=== PATIENT | female | born 1955 | race Caucasian/White ===

== ENCOUNTER 2025-02-07 21:23 | Observation (INO) | payer OTHER ==
--- NOTE | 2025-02-07 22:23 | RAD REPORT ---
EXAMINATION: ONE VIEW CHEST XR CLINICAL INDICATION: CHEST PAIN TECHNIQUE: Frontal chest projection is submitted. Examination is limited by patient positioning and t echnique. COMPARISON: 08/29/2024 FINDINGS: The lungs are mildly emphysematous but clear. The heart is upper limit of normal in size. No displace d fractures identified. Mild levoscoliosis upper thoracic spine. IMPRESSION: No acute intrathoracic abnormalities.
[2025-02-07 23:11] LABS: Absolute Basophils 0.1 K/uL (0-0.5); Absolute Eosinophils 0.3 K/uL (0-0.5); Absolute Lymphocytes (CBC) 2.2 K/uL (0.7-4.9); Absolute Neutrophil 3.5 K/uL (1.8-8.0); Basophils % 1.5 % (0-1.3); Eosinophils % 4.9 % (0-4.4); Hematocrit 35.3 % (36.0-45.0); Hemoglobin 12.3 g/dL (12.0-15.0); MCH 31.5 pg (27.0-35.0); MCHC 34.7 g/dL (32.0-36.0); MCV 90.6 fL (80-100); MPV 8.9 fL (7.6-11.3); Monocytes % 13.6 % (3.3-12.3); Platelets 250 thou/uL (152-406); Red Cell Distribution Width 14.2 % (12.1-15.2)
[2025-02-07 23:13] LABS: PT Prothrombin Time 11.6 SECONDS (10-13.0); Protime INR 1.02
[2025-02-07 23:25] LABS: ALT/SGPT 29 U/L (13-56); AST/SGOT 26 U/L (15-37); Albumin 3.3 g/dL (3.4-5.0); Albumin/Globulin Ratio 0.9 (1.1-1.8); Alkaline Phosphatase 63 U/L (45-117); Anion Gap 7.9 mEq/L (5.0-15.0); BUN Blood Urea Nitrogen 25 mg/dL (7-18); Bicarbonate 27 mEq/L (21-32); Bilirubin Direct < 0.2 mg/dL (0-0.2); Bilirubin Indirect, Calculated 0.1 mg/dL (0.2-0.8); Bilirubin Total 0.3 mg/dL (0.2-1.0); Globulin 3.5 g/dL (2.3-3.5); Glomerular Filtration Rate 46 ml/min (=/>90); Glucose Level 87 mg/dL (74-106); Magnesium 2.3 mg/dL (1.6-2.4); NT PRO-BNP 217 pg/mL (<125); Potassium 3.9 mEq/L (3.5-5.1); Protein, Total 6.8 g/dL (6.4-8.2); Sodium Level 141 mEq/L (136-145); Troponin High Sensitivity 4.9 pg/mL (<58.9)
[2025-02-07] MEDS ORDERED: MAGNESIUM SULFATE 1 gm IVPB 1 GM/100 ML BAG IV ONE (23:34)
[2025-02-07] MEDS ORDERED: NA CHLORIDE 0.9% 1,000 ML ONE (23:34)
--- NOTE | 2025-02-08 01:45 | ER ---
Nurse's Notes [facility] Name: Gwen Wen Age: 69 yrs Sex: Female : 1955 Arrival Date: 02/07/2025 Time: 21:23 Bed 6 Private MD: Diagnosis: Paroxysmal atrial fibrillation Presentation: 02/07 21:50 Chief complaint: Patient states: at 2030 i began to feel like my heart was fluttering. lg3 i have a history of a fib and i think its back. denies pain/SOB. Coronavirus screen: Client denies travel out of the [place] in the last 14 days. At this time, the client does not indicate any symptoms associated with coronavirus-19. Ebola Screen: No symptoms or risks identified at this time. Initial Sepsis Screen: Does the patient meet any 2 criteria? No. Patient's initial sepsis screen is negative. Does the patient have a suspected source of infection? No. Patient's initial sepsis screen is negative. Risk Assessment: Do you want to hurt yourself or someone else? Patient reports no desire to harm self or others. Onset of symptoms was February 07, 2025. 21:50 Method Of Arrival: Ambulatory lg3 21:50 Acuity: CAT 3 lg3 Triage Assessment: 21:50 General: Appears in no apparent distress. comfortable, Behavior is calm, cooperative. lg3 Pain: Denies pain. EENT: No deficits noted. No signs and/or symptoms were reported regarding the EENT system. Neuro: No deficits noted. [place] Agitation-Sedation Scale (RASS): 0 - Alert and Calm Level of Consciousness is awake, alert, Oriented to person, place, time, situation. Cardiovascular: Reports palpitations, Denies chest pain, shortness of breath, Heart tones S1 S2 present Capillary refill < 3 seconds Clubbing of nail beds is absent JVD is absent Patient's skin is warm and dry. Rhythm is atrial fibrillation with rapid ventricular response Chest pain is denied. Respiratory: No deficits noted. Airway is patent Respiratory effort is even, unlabored, Respiratory pattern is regular, symmetrical, Breath sounds are clear bilaterally. GI: No deficits noted. No signs and/or symptoms were reported involving the gastrointestinal system. : No signs and/or symptoms were reported regarding the genitourinary system. Derm: No deficits noted. No signs and/or symptoms reported regarding the dermatologic system. Skin is intact, is healthy with good turgor, Skin is dry, Skin is normal, Skin temperature is warm. Musculoskeletal: No deficits noted. No signs and/or symptoms reported regarding the musculoskeletal system. Circulation, motion, and sensation intact. Range of motion: intact in all extremities. Historical: - Allergies: 21:50 Bactrim; lg3 21:50 NITROFURAN DERIVATIVES; lg3 - Home Meds: 21:50 metoprolol succinate 25 mg oral Tablet, Extended Release 24 hr [Active]; valsartan 160 lg3 mg oral tablet 1 tab daily [Active]; atorvastatin 20 mg oral tablet 1 tab daily [Active]; hydroxychloroquine 400 mg oral tablet daily [Active]; famotidine 20 mg Oral tablet daily [Active]; levothyroxine 25 mcg tablet daily [Active]; aspirin 81 mg Oral capsule daily [Active]; - PMHx: 21:50 Atrial fibrillation; Hypercholesterolemia; Hypothyroidism; Rheumatoid arthritis; lg3 melanoma; - PSHx: 21:50 Total abdominal hysterectomy; bladder sling; right knee replacement; right foot; lg3 melanoma removal; - Immunization history:: Adult Immunizations up to date. - Infectious Disease History:: Denies. - Social history:: Smoking status: Patient denies any tobacco usage or history of. Patient/guardian denies using alcohol, street drugs. Screenin/19 01:23 [facility] ED Fall Risk Assessment (Adult) History of falling in the last 3 months, jb4 including since admission No falls in past 3 months (0 pts) Confusion or Disorientation No (0 pts) Intoxicated or Sedated No (0 pts) Impaired Gait No (0 pts) Mobility Assist Device Used No (0 pt) Altered Elimination No (0 pt) Score/Fall Risk Level 0 - 2 = Low Risk Oriented to surroundings, Maintained a safe environment. Abuse screen: Denies threats or abuse. Nutritional screening: No deficits noted. Tuberculosis screening: No symptoms or risk factors identified. Assessment: 00:02 Reassessment: Patient appears in no apparent distress at this time. Patient and/or jb4 family updated on plan of care and expected duration. Pain level reassessed. Patient is alert, oriented x 3, equal unlabored respirations, skin warm/dry/pink. Patient states feeling better. 01:23 Reassessment: Patient appears in no apparent distress at this time. Patient and/or jb4 family updated on plan of care and expected duration. Pain level reassessed. Patient is alert, oriented x 3, equal unlabored respirations, skin warm/dry/pink. Patient states feeling better. Patient states symptoms have improved. 02:30 Reassessment: Patient appears in no apparent distress at this time. Patient and/or jb4 family updated on plan of care and expected duration. Pain level reassessed. Patient is alert, oriented x 3, equal unlabored respirations, skin warm/dry/pink. Vital Signs: 02/07 21:50 BP 134 / 89; Pulse 111; Resp 16 S; Temp 97.8(O); Pulse Ox 99% on R/A; Weight 90.72 kg lg3 (R); Height 5 ft. 10 in. (R); Pain 0/10; 02/08 00:02 BP 131 / 90; Pulse 85; Resp 13; Pulse Ox 98% on R/A; jb4 01:23 BP 123 / 66; Pulse 73; Resp 16; Pulse Ox 99% on R/A; jb4 02:45 BP 108 / 57; Pulse 71; Resp 16; Pulse Ox 98% on R/A; jb4 02/07 21:50 Body Mass Index 28.70 (90.72 kg, 177.8 cm) lg3 02/07 21:50 Pain Scale: Adult lg3 Vitals: 00:02 Cardiac Rhythm Assessment Irregular. jb4 ED Course: 02/07 21:25 Patient arrived in ED. jj6 21:33 Nevin Leroy PA-C is PHCP. sb4 21:33 Kimo Polanco MD is Attending Physician. sb4 21:50 Arm band placed on right wrist. lg3 22:14 XRAY Chest (1 view) In Process Unspecified. EDMS 23:01 Triage completed. lg3 23:01 Basic Metabolic Panel Sent. vk 23:01 CBC with Diff Sent. vk 23:01 LFT's Sent. vk 23:01 Magnesium Sent. vk 23:01 NT PRO-BNP Sent. vk 23:01 PT-INR Sent. vk 23:01 Troponin HS Sent. vk 23:01 Initial lab(s) drawn, by me, sent to lab. EKG done, by ED staff. Inserted saline lock: vk 20 gauge in left antecubital area, using aseptic technique. Blood collected. Flushed with 10 mL NS. 02/08 00:00 Patient has correct armband on for positive identification. Bed in low position. Call 4 light in reach. Side rails up X 1. Provided Education on: plan of care. Client placed on continuous cardiac and pulse oximetry monitoring. NIBP monitoring applied. threat monitoring analyst on. Pulse ox on. 00:02 Corey Lobo RN is Primary Nurse. jb4 01:44 Nilesh Hong MD is Hospitalizing Provider. sb4 02:57 No provider procedures requiring assistance completed. Patient admitted, IV remains in jb4 place. Patient maintains SpO2 saturation greater than 95% on room air. Administered Medications: 00:01 Drug: Magnesium Sulfate IVPB 1 grams IVPB once over 1 hrs Route: IVPB; Infused Over: 1 jb4 hrs; Site: left antecubital; 01:01 Follow up: Response: No adverse reaction; IV Status: Completed infusion; IV Intake: al5 100ml 00:02 Drug: NS 0.9% IV 1000 ml IV at 1 bolus Per protocol; to be given as a bolus over 60 jb4 minutes Route: IV; Rate: 1 bolus; Site: left antecubital; 01:00 Follow up: Response: No adverse reaction; Marked relief of symptoms; IV Status: jb4 Completed infusion; IV Intake: 1000ml 02:22 Drug: Lovenox Sub-Q 40 mg Sub-Q once Route: Sub-Q; Site: right lower abdomen; jb4 02:58 Follow up: Response: No adverse reaction jb4 Medication: 01:23 VIS not applicable for this client. jb4 Intake: 01:00 IV: 1000ml; Total: 1000ml. jb4 01:01 IV: 100ml; Total: 1100ml. al5 Outcome: 01:44 Decision to Hospitalize by Provider. sb4 02:57 Admitted to ER Hold. Please see [facility] for further documentation. jb4 02:57 Condition: stable 02:57 Discharge instructions given to patient, Instructed on the need for admit, Demonstrated understanding of instructions, 08:26 Patient left the ED. db Signatures: Dispatcher [employer] EDMS Corey Lobo RN RN jb4 Dang Rock RN RN 3 Valery Tian 6 Melissa Zaidi RN RN Nevin Aleman PA-C PAFanyC sb4 Abby Sherman Amanda, RN RN al5 Corrections: (The following items were deleted from the chart) 02/07 23:16 22:45 The history from the nurse's notes was reviewed and I agree with what is lg3 documented. sb4 02/08 00:04 00:02 Pulse 85bpm; Resp 13bpm; Pulse Ox 98% RA; jb4 jb4
--- NOTE | 2025-02-08 01:45 | EDPHYS ---
Physician Documentation [facility] Name: Gwen Wen Age: 69 yrs Sex: Female : 1955 Arrival Date: 02/07/2025 Time: 21:23 Bed 6 Private MD: ED Physician Kimo Polanco HPI: 02/07 22:45 This 69 yrs old Female presents to ER via Unassigned with complaints of Irregular Pulse.sb4 22:45 Patient states that she has felt some palpitations in her chest this evening, she sb4 checked her Apple Watch and it told her she was in A-fib. States that she had an episode of A-fib 14 years ago and has been on metoprolol daily since, but has not had any episodes of it. States she had a negative cardiac workup a few months ago. She is not on any blood thinners. She denies any chest pain or shortness of breath, just feeling palpitations. Historical: - Allergies: 21:50 Bactrim; lg3 21:50 NITROFURAN DERIVATIVES; lg3 - Home Meds: 21:50 metoprolol succinate 25 mg oral Tablet, Extended Release 24 hr [Active]; valsartan 160 lg3 mg oral tablet 1 tab daily [Active]; atorvastatin 20 mg oral tablet 1 tab daily [Active]; hydroxychloroquine 400 mg oral tablet daily [Active]; famotidine 20 mg Oral tablet daily [Active]; levothyroxine 25 mcg tablet daily [Active]; aspirin 81 mg Oral capsule daily [Active]; - PMHx: 21:50 Atrial fibrillation; Hypercholesterolemia; Hypothyroidism; Rheumatoid arthritis; lg3 melanoma; - PSHx: 21:50 Total abdominal hysterectomy; bladder sling; right knee replacement; right foot; lg3 melanoma removal; - Immunization history:: Adult Immunizations up to date. - Infectious Disease History:: Denies. - Social history:: Smoking status: Patient denies any tobacco usage or history of. Patient/guardian denies using alcohol, street drugs. ROS: 22:45 Constitutional: Negative for fever, chills, and weight loss, sb4 22:45 Cardiovascular: Positive for palpitations, 22:45 All other systems are negative, Exam: 22:45 Constitutional: This is a well developed, well nourished patient who is awake, alert, sb4 and in no acute distress. Head/Face: Normocephalic, atraumatic. Eyes: Extra-ocular motions intact. Periorbital areas with no swelling, redness, or edema. ENT: Mucous membranes moist. Respiratory: No increased work of breathing, no retractions or nasal flaring. Abdomen/GI: Soft, non-tender, no distension. Skin: Warm, dry with normal turgor. Normal color with no rashes, no lesions, and no evidence of cellulitis. 22:45 Cardiovascular: Rate: tachycardic, Rhythm: irregular, Vital Signs: 21:50 BP 134 / 89; Pulse 111; Resp 16 S; Temp 97.8(O); Pulse Ox 99% on R/A; Weight 90.72 kg lg3 (R); Height 5 ft. 10 in. (R); Pain 0/10; 02/08 00:02 BP 131 / 90; Pulse 85; Resp 13; Pulse Ox 98% on R/A; jb4 01:23 BP 123 / 66; Pulse 73; Resp 16; Pulse Ox 99% on R/A; jb4 02:45 BP 108 / 57; Pulse 71; Resp 16; Pulse Ox 98% on R/A; jb4 02/07 21:50 Body Mass Index 28.70 (90.72 kg, 177.8 cm) lg3 02/07 21:50 Pain Scale: Adult lg3 MDM: 02/07 21:48 Medical Screening Exam initiated sb4 02/08 00:17 Data reviewed: vital signs, nurses notes, lab test result(s), EKG, radiologic studies. sb4 01:45 Counseling: I had a detailed discussion with the patient and/or guardian regarding the sb4 historical points, exam findings, and any diagnostic results supporting the discharge/admit diagnosis, lab results, radiology results, the need for further work-up and treatment in the hospital. 02/07 21:53 Order name: Basic Metabolic Panel; Complete Time: 23:26 4 02/07 21:53 Order name: CBC with Diff; Complete Time: 23:24 sb4 02/07 21:53 Order name: LFT's; Complete Time: 23:26 4 02/07 21:53 Order name: Magnesium; Complete Time: 23:26 4 02/07 21:53 Order name: NT PRO-BNP; Complete Time: 23:26 sb4 02/07 21:53 Order name: PT-INR; Complete Time: 23:24 sb4 02/07 21:53 Order name: Troponin HS; Complete Time: 23: sb4 02/08 06:55 Order name: Troponin High Sensitivity; Complete Time: 13:06 EDMS 02/07 21:53 Order name: XRAY Chest (1 view); Complete Time: 22:23 sb4 02/07 21:53 Order name: Cardiac monitoring; Complete Time: 23: sb4 02/07 21:53 Order name: EKG - Nurse/Tech; Complete Time: 23: sb4 02/07 21:53 Order name: IV Saline Lock; Complete Time: 23: sb4 02/07 21:53 Order name: Labs collected and sent; Complete Time: 23: sb4 02/07 21:53 Order name: O2 Per Protocol; Complete Time: 23: sb4 02/07 21:53 Order name: O2 Sat Monitoring; Complete Time: 23: sb4 02/07 23:39 Order name: EKG - Nurse/Tech: REPEAT; Complete Time: : sb4 EC/18 22:59 Rate is 110 beats/min. Rhythm is irregularly irregular, A fib. QRS interval is normal sb4 at 90 msec. QT interval is normal at 304 msec. No Q waves. T waves are Normal. No ST changes noted. Clinical impression: Atrial Fibrillation. Interpreted by me. Reviewed by me. Administered Medications: 02/08 00:01 Drug: Magnesium Sulfate IVPB 1 grams IVPB once over 1 hrs Route: IVPB; Infused Over: 1 jb4 hrs; Site: left antecubital; 01:01 Follow up: Response: No adverse reaction; IV Status: Completed infusion; IV Intake: al5 100ml 00:02 Drug: NS 0.9% IV 1000 ml IV at 1 bolus Per protocol; to be given as a bolus over 60 jb4 minutes Route: IV; Rate: 1 bolus; Site: left antecubital; 01:00 Follow up: Response: No adverse reaction; Marked relief of symptoms; IV Status: jb4 Completed infusion; IV Intake: 1000ml 02:22 Drug: Lovenox Sub-Q 40 mg Sub-Q once Route: Sub-Q; Site: right lower abdomen; jb4 02:58 Follow up: Response: No adverse reaction jb4 Disposition: 23:26 Co-signature as Attending Physician, Kimo Polanco MD I agree with the assessment sp4 and plan of care. I reviewed the patient's care provided by the Advanced Practice Provider and agree with the diagnosis and treatment plan. Disposition Summary: 02/08/25 01:44 Hospitalization Ordered Notes: Hospitalization Status: Observation sb4 Provider: Nilesh Hong sb4 Condition: Stable sb4 Problem: new sb4 Symptoms: have improved sb4 Bed/Room Type: Standard sb4 Location: [facility] ER HOLD(02/08/25 02:16) lg3 Room Assignment: ERHOLD-(02/08/25 02:16) lg3 Diagnosis - Paroxysmal atrial fibrillation sb4 Forms: - Medication Reconciliation Form sb4 - SBAR form sb4 - Leadership Thank You Letter sb4 Signatures: Dispatcher [employer] EDCorey Klein RN RN jb4 Dang Rock RN RN lg3 Nevin Leroy PAFanyC PAFanyC sb4 Kimo Polanco MD MD sp4 Judi Rowland RN al5 Corrections: (The following items were deleted from the chart) 02/07 21:54 21:54 BASIC METABOLIC PANEL+C.LAB.BRZ ordered. EDNY EDMS 21:54 21:54 CBC+H.LAB.BRZ ordered. EDNY EDMS 21:54 21:54 HEPATIC FUNCTION+C.LAB.BRZ ordered. EDNY EDMS 21:54 21:54 MAGNESIUM+C.LAB.BRZ ordered. EDNY EDMS 21:54 21:54 PROBNP+C.LAB.BRZ ordered. EDNY EDMS 21:54 21:54 PROTIME (+INR)+COAG.LAB.BRZ ordered. EDMS EDMS 21:54 21:54 Troponin High Sensitivity+C.LAB.BRZ ordered. EDNY EDMS 21:54 21:54 Chest Single View+RAD.RAD.BRZ ordered. EDNY EDMS 23:16 22:45 The history from the nurse's notes was reviewed and I agree with what is lg3 documented. sb4 02/08 02:16 01:44 Telemetry/MedSurg (observation) sb4 lg3 02:16 01:44 sb4 lg3
[2025-02-08] MEDS ORDERED: ENOXAPARIN 40 MG/0.4 ML SQ ONE (02:20)
[2025-02-08] MEDS ORDERED: ACETAMINOPHEN 325 MG TABLET PO PRN (03:04)
[2025-02-08 03:16] VITALS: BMI 28.7
[2025-02-08 05:55] VITALS: TEMP 98.6
[2025-02-08 08:06] VITALS: BP 140/78
[2025-02-08] MEDS ORDERED: ENOXAPARIN 40 MG/0.4 ML SQ SCH (09:00)
--- NOTE | 2025-02-08 12:27 | EKG ---
Test Date: 2025-02-08 Test Time: 01:18:34 Dental Office Coordinator: TANNER MEASUREMENT RESULTS: Intervals: Rate: 68 W[place]: 238 QRSD: 90 QT: 426 QTc: 452 [place]: P: 44 [place]: 238 QRS: -31 T: 58 INTERPRETIVE STATEMENTS: Sinus rhythm with 1st degree AV block Left axis deviation Minimal voltage criteria for LVH, may be normal variant Anterior infarct, age undetermined Abnormal ECG Compared to ECG 02/07/2025 22:48:17 First degree AV block now present Left-axis deviation now present Left ventricular hypertrophy now present Myocardial infarct finding now present Atrial fibrillation no longer present Electronically Signed On 02-08-25 12:25:00 CDT by Jad Castillo
--- NOTE | 2025-02-08 12:27 | EKG ---
Test Date: 2025-02-07 Test Time: 22:48:17 Line Controller: AGNIESZKA MEASUREMENT RESULTS: Intervals: Rate: 110 [place]: QRSD: 90 QT: 304 QTc: 411 [place]: P: [place]: QRS: -15 T: 81 INTERPRETIVE STATEMENTS: Atrial fibrillation with rapid ventricular response Abnormal ECG Compared to ECG 03/29/2011 15:59:11 Sinus rhythm no longer present Myocardial infarct finding no longer present Electronically Signed On 02-08-25 12:25:05 CDT by Jad Castillo
--- NOTE | 2025-02-08 12:27 | EKG ---
Test Date: 2025-02-08 Test Time: 03:09:48 Coal Trimmer Machine Operator: TANNER MEASUREMENT RESULTS: Intervals: Rate: 67 [place]: 252 QRSD: 92 QT: 426 QTc: 450 [place]: P: 47 [place]: 252 QRS: -14 T: 54 INTERPRETIVE STATEMENTS: Sinus rhythm with 1st degree AV block Anterior infarct, age undetermined Abnormal ECG Compared to ECG 03/29/2011 15:59:11 First degree AV block now present Myocardial infarct finding still present Electronically Signed On 02-08-25 12:24:55 CDT by Jad Castillo
--- NOTE | 2025-02-08 13:06 | P.SSS ---
Patient History Date of Service: 02/08/25 Reason for admission: PALPITAIONS History of Present Illness: NICKY IS A PATIENT WITH HISTORY OF PERICARDITIS, FOLLOWED BY DR STEVEN COMES WITH A FIB BUT RESOLVED WITHOUT MEDS AT HOSPITAL. SHE WILL RAIS HER METOPROLOL TO 50 MG DAILY. SHE WILL GO TO LOCAL CARDIOLOGISTS. FU AT MY OFFICE ALSO. SHE WILL BE ON ELIUQUIS IF A FIB IS RECURRENT. I CALLED IN RX FOR METOP 50 MG. Allergies nitrofurantoin Allergy (Verified 02/08/25 03:04) Itching/Hives/Rash sulfamethoxazole [From Bactrim] Allergy (Verified 02/08/25 03:04) Itching/Hives/Rash trimethoprim [From Bactrim] Allergy (Verified 02/08/25 03:04) Itching/Hives/Rash Home Medications: Atorvastatin Calcium [Lipitor] 20 mg PO DAILY 02/08/25 Famotidine [Pepcid] 1 tab PO DAILY 02/08/25 Hydroxychloroquine [Plaquenil*] 2 tab PO DAILY 02/08/25 Levothyroxine Sodium 1 tab PO DAILY 02/08/25 Metoprolol Succinate 25 mg PO DAILY 02/08/25 Valsartan 160 mg PO DAILY 02/08/25 - Past Medical/Surgical History Has patient received pneumonia vaccine in the past: Yes -: A. Fib -: hypercholesterolemia -: hypothyroidism -: RA -: melanoma -: Hysterectomy -: Bladder sling -: Right knee replacement -: Right foot -: melanoma removal - Social History Smoking Status: Never smoker Place of Residence: Home Review of Systems 10-point ROS is otherwise unremarkable General: Weakness Physical Examination - Vital Signs Temperature: 98.6 F Blood Pressure: 140/78 Pulse: 76 Respirations: 15 Pulse Ox (%): 97 - Physical Exam General: Alert, In no apparent distress HEENT: Atraumatic, PERRLA, Mucous membr. moist/pink, EOMI, Sclerae nonicteric Neck: Supple, 2+ carotid pulse no bruit, No LAD, Without JVD or thyroid abnormality Respiratory: Clear to auscultation bilaterally, Normal air movement Cardiovascular: Regular rate/rhythm, Normal S1 S2 Gastrointestinal: Normal bowel sounds, No tenderness Musculoskeletal: No tenderness Integumentary: No rashes Neurological: Normal gait, Normal speech, Normal strength at 5/5 x4 extr, Normal tone, Normal affect Lymphatics: No axilla or inguinal lymphadenopathy - Studies Laboratory Data (last 24 hrs) 02/07/25 02/07/25 02/07/25 22:58 22:58 22:58 WBC 7.10 Hgb 12.3 Hct 35.3 L Plt Count 250 PT 11.6 INR 1.02 Sodium 141 Potassium 3.9 BUN 25 H Creatinine 1.27 H Glucose 87 Magnesium 2.3 Total Bilirubin 0.3 AST 26 ALT 29 Alkaline Phosphatase 63 - Diagnosis (Problem(s)) (1) Transient atrial fibrillation Status: Acute Plan: STABLE HPI. SHE CAN GO HOME AND FU WITH [employer] TR[employer]MER. SHE HAS NO SYMPTOMS AND SHE BACK IN NSR. FOLLOWING IS HER HISTORY. Osteoarthritis [M19.90] 2018 Polymyalgia rheumatica [M35.3] 2018 Chronic pain [G89.29] 2020 Rheumatoid arthritis [M06.9 0.6] 2021 Tendonitis [M77.9] 2021 Eosinophilia [D72.10] POSSIBLE FROM MELOXICAM. ASPIRIN OR ALLERGIES. POSSIBLE FROM MELOXICAM. ASPIRIN OR ALLERGIES. 2022 Abnormal thyroid blood test [R79.89] check labs again. TSH elevated. check labs again. TSH elevated. 2022 Hypertension [I10] controlled on current meds controlled on current meds 2023 Peripheral neuropa - Disposition Disposition: ROUTINE DISCHARGE Condition: FAIR
[2025-02-08 15:46] VITALS: O2SAT 98
== END 2025-02-08 08:24 | disposition home or self-care (01) ==
LOC: ER 21:23 → ERHOLD 02-08 01:46
PROVIDERS: ADMIT Internal Medicine; ATTEND Internal Medicine
DX: I48.0 Paroxysmal atrial fibrillation (principal); M19.90 Unspecified osteoarthritis, unspecified site; M06.9 Rheumatoid arthritis, unspecified; M35.3 Polymyalgia rheumatica; G89.29 Other chronic pain; Z88.1 Allergy status to other antibiotic agents
CPT/HCPCS: 93005 ×3; 85025; 80048; 36415; 83735; 85610; 80076; 84484 ×2; 83880; 71045; J3475; J1650; J7030; G0378